=== PATIENT | male | born 1995 | race Caucasian/White ===

== ENCOUNTER 2018-09-19 13:40 | Emergency (ER) | payer SELFPAY ==
[2018-09-19 13:40] VITALS: BP 148/92; PULSE 105; RESP 18; TEMP 36.8; O2SAT 99; BMI 47.5
[2018-09-19 14:20] LABS: UTC Strep Screen (Rapid) Negative (Negative)
--- NOTE | 2018-09-19 14:37 | HMH.EDUTC ---
[facility] [place] Disposition Clinical Impression: Pharyngitis Qualifiers: Pharyngitis/tonsillitis etiology: unspecified etiology Qualified Code(s): J02.9 - Acute pharyngitis, unspecified Otitis media Qualifiers: Otitis media type: suppurative Chronicity: acute Laterality: bilateral Recurrence: non-recurrent Spontaneous tympanic membrane rupture: without spontaneous rupture Qualified Code(s): H66.003 - Acute suppurative otitis media without spontaneous rupture of ear drum, bilateral Disposition: Home, Self-Care Condition on Discharge: Good Instructions: Sore Throat, Middle Ear Infection, DI for Pharyngitis/Tonsillopharyngitis -- Adult Additional Instructions: Drink plenty of fluids. Take tylenol or ibuprofen for pain or fever Take all the antibiotics as prescribed. Throw your tooth brush away and get a new one. Follow up with your regular doctor or return if you're not getting some better in 48 hours. GO TO THE ER FOR ANY WORSENING OR LIFE THREATENING SYMPTOMS Prescriptions: Ibuprofen [Ibuprofen 600mg Tablet] 600 mg PO Q6HP PRN #30 tab PRN Reason: Mild Pain predniSONE [Deltasone 10mg tablet] 10 mg PO BID 3 Days #6 tab Cefdinir [Omnicef 300mg Capsule] 300 mg PO BID #20 cap Referrals: Yuly Tubbs MD [Primary Care Provider] - Forms: Work/School Release Time of Disposition: 14:43 Medical Decision Making - Medical Records Medical records reviewed: Yes: I reviewed the patient's medical records. - Akshat Inquiry Pt receiving controlled substance: No Akshat was queried for this patient: No Vital Signs: 09/19/18 13:40 09/19/18 14:47 Temperature 98.2 F 98.2 F Temperature Source Oral Oral Pulse Rate 105 H Pulse Rate [Left Radial] 105 H Respiratory Rate 18 18 Blood Pressure 148/92 H Blood Pressure [Right Arm] 148/92 H Blood Pressure Mean [Right Arm] 110 Blood Pressure Source Automatic Cuff Blood Pressure Source [Right Arm] Automatic Cuff Blood Pressure Position Sitting Blood Pressure Position [Right Arm] Sitting 02 Sat by Pulse Oximetry 99 Oxygen Delivery Method Room Air Room Air - Lab Data Lab results reviewed: Yes: I reviewed the patient's lab results. Lab Results 09/19/18 14:20: Strep Scn Rapid Clinic Negative Orders (Tests/Meds): ORDERS Category Date Time Status Strep Screen Confirmation Stat Micro 09/19/18 14:20 Received [facility] [place] HPI - General Stated complaint: Headache and high fever Time Seen by Provider: 09/19/18 14:20 Mode of Arrival: Ambulatory Source of Information: Patient Limitations: No Limitations Description of Symptoms (Recalled from Triage Doc. by RN): fever, headache, sore throat since last night HEENT Symptoms (Recalled from RN notes): Yes Resp Symptoms (Recalled from RN notes): No Skin Symptoms (Recalled from RN notes): No MS Symptoms (Recalled from RN notes): No Functional Status (Recalled from RN notes): wnl - Related Data Previous Rx's Medication Instructions Recorded Cefdinir [Omnicef 300mg Capsule] 300 mg PO BID #20 cap 09/19/18 Ibuprofen [Ibuprofen 600mg 600 mg PO Q6HP PRN #30 tab 09/19/18 Tablet] predniSONE [Deltasone 10mg tablet] 10 mg PO BID 3 Days #6 tab 09/19/18 Allergies Allergy/AdvReac Type Severity Reaction Status Date / Time amoxicillin [From AUGMENTIN] Allergy Mild Unverified 03/27/17 15:08 clavulanic acid Allergy Mild Unverified 03/27/17 15:08 [From AUGMENTIN] - Worker's Comp Is this a Worker's Comp case?: No [facility] History - Hepatitis A Screen Drug use history?: No High risk sexual behaviors?: No History of sexually transmitted infection?: No Currently employed?: No Childcare worker?: No Do you have indoor plumbing?: Yes Do you have electricity?: Yes Attestation statement:: This patient has been screened for Hepatitis A risk factors. I have reviewed the patient's past medical history: Yes - Social History Educational Level: Completed High School Smoking Status: Current every d
--- NOTE | 2018-09-19 14:41 | ED_ITS ---
[facility] [place] Disposition Clinical Impression: Pharyngitis Qualifiers: Pharyngitis/tonsillitis etiology: unspecified etiology Qualified Code(s): J02.9 - Acute pharyngitis, unspecified Otitis media Qualifiers: Otitis media type: suppurative Chronicity: acute Laterality: bilateral Recurrence: non-recurrent Spontaneous tympanic membrane rupture: without spontaneous rupture Qualified Code(s): H66.003 - Acute suppurative otitis media without spontaneous rupture of ear drum, bilateral Disposition: Home, Self-Care Condition on Discharge: Good Instructions: Sore Throat, Middle Ear Infection, DI for Pharyngitis/Tonsillopharyngitis -- Adult Additional Instructions: Drink plenty of fluids. Take tylenol or ibuprofen for pain or fever Take all the antibiotics as prescribed. Throw your tooth brush away and get a new one. Follow up with your regular doctor or return if you're not getting some better in 48 hours. GO TO THE ER FOR ANY WORSENING OR LIFE THREATENING SYMPTOMS Prescriptions: Ibuprofen [Ibuprofen 600mg Tablet] 600 mg PO Q6HP PRN #30 tab PRN Reason: Mild Pain predniSONE [Deltasone 10mg tablet] 10 mg PO BID 3 Days #6 tab Cefdinir [Omnicef 300mg Capsule] 300 mg PO BID #20 cap Referrals: Yuly Tubbs MD [Primary Care Provider] - Forms: Work/School Release Time of Disposition: 14:43 Medical Decision Making - Medical Records Medical records reviewed: Yes: I reviewed the patient's medical records. - Akshat Inquiry Pt receiving controlled substance: No Akshat was queried for this patient: No Vital Signs: 09/19/18 13:40 09/19/18 14:47 Temperature 98.2 F 98.2 F Temperature Source Oral Oral Pulse Rate 105 H Pulse Rate [Left Radial] 105 H Respiratory Rate 18 18 Blood Pressure 148/92 H Blood Pressure [Right Arm] 148/92 H Blood Pressure Mean [Right Arm] 110 Blood Pressure Source Automatic Cuff Blood Pressure Source [Right Arm] Automatic Cuff Blood Pressure Position Sitting Blood Pressure Position [Right Arm] Sitting 02 Sat by Pulse Oximetry 99 Oxygen Delivery Method Room Air Room Air - Lab Data Lab results reviewed: Yes: I reviewed the patient's lab results. Lab Results 09/19/18 14:20: Strep Scn Rapid Clinic Negative Orders (Tests/Meds): ORDERS Category Date Time Status Strep Screen Confirmation Stat Micro 09/19/18 14:20 Received [facility] [place] HPI - General Stated complaint: Headache and high fever Time Seen by Provider: 09/19/18 14:20 Mode of Arrival: Ambulatory Source of Information: Patient Limitations: No Limitations Description of Symptoms (Recalled from Triage Doc. by RN): fever, headache, sore throat since last night HEENT Symptoms (Recalled from RN notes): Yes Resp Symptoms (Recalled from RN notes): No Skin Symptoms (Recalled from RN notes): No MS Symptoms (Recalled from RN notes): No Functional Status (Recalled from RN notes): wnl - Related Data Previous Rx's Medication Instructions Recorded Cefdinir [Omnicef 300mg Capsule] 300 mg PO BID #20 cap 09/19/18 Ibuprofen [Ibuprofen 600mg 600 mg PO Q6HP PRN #30 tab 09/19/18 Tablet] predniSONE [Deltasone 10mg tablet] 10 mg PO BID 3 Days #6 tab 09/19/18
[2018-09-19 14:47] VITALS: BP 148/92; PULSE 105; RESP 18; TEMP 36.8; O2SAT 99
== END 2018-09-19 14:48 | disposition home or self-care (01) ==
PROVIDERS: Emergency Provider Nurse Practitioner Family; PCP Family Medicine
DX: J02.9 Acute pharyngitis, unspecified (principal); H66.003 Acute suppurative otitis media without spontaneous rupture of ear drum, bilateral; Z88.1 Allergy status to other antibiotic agents
CPT/HCPCS: 87880; 99201

== ENCOUNTER 2020-03-16 09:00 | Emergency (ER) | payer MEDICAID, SELFPAY ==
[2020-03-16 09:18] VITALS: BP 162/96; PULSE 82; RESP 20; TEMP 36.6; O2SAT 100; BMI 473.6
--- NOTE | 2020-03-16 09:23 | HMH.EDUTC ---
[facility] – [place] Disposition Clinical Impression: Exposure to COVID-19 virus Disposition: Home, Self-Care Condition on Discharge: Good Instructions: Preventing the Spread of Coronavirus Discharge Instructions Additional Instructions: *Monitor Temp, Over the counter Motrin or Tylenol as directed/as needed Tylenol every 4 hours and Motrin every 6 hours (as long as your family doctor has told you that you can take it) for fever or pain. and straight to ER if unable to lower temp less than 101.0 after medication given *Warm salt water gargles may help to soothe the throat *Throat Lozenges *Warm fluids like tea with honey may help to soothe the throat *Sleep elevated *Humidifier/Vaporizer Follow up IMMEDIATELY for new or worsening symptoms or no Noticeable improvement over the next 48-72 hours. 911 for difficulty breathing or swallowing You were tested for today for COVID19 your test result should be back in the next 24-48 hours, you may call to the [facility] to see if your test results are back in the next 48 hours [phone] [facility] hours are 9am-9pm You was given a handout with instructions for Self Quarantine and Self isolation for while you wait on test results and what to do if they are positive If you are positive the Health Dept will be contacting you also Referrals: PCP,No [Primary Care Provider] - Forms: Work/School Release Time of Disposition: 09:29 Medical Decision Making - Akshat Inquiry Pt receiving controlled substance: No Akshat was queried for this patient: No Vital Signs: 03/16/20 09:18 Temperature 97.8 F Temperature Source Oral Pulse Rate [Radial] 82 Respiratory Rate 20 Blood Pressure [Right Arm] 162/96 H Blood Pressure Mean [Right Arm] 118 Blood Pressure Source [Right Arm] Automatic Cuff Blood Pressure Position [Right Arm] Sitting 02 Sat by Pulse Oximetry 100 Oxygen Delivery Method Room Air Orders (Tests/Meds): ORDERS Category Date Time Status Covid-19 Nasal PCR Sendout [facility] 03/16/20 09:16 Ordered [facility] – [place] HPI - General Stated complaint: covid exposure Time Seen by Provider: 03/16/20 09:24 Mode of Arrival: Ambulatory Source of Information: Patient Limitations: No Limitations Description of Symptoms (Recalled from Triage Doc. by RN): covid exposure 2 days ago no symptoms HEENT Symptoms (Recalled from RN notes): No Resp Symptoms (Recalled from RN notes): No Skin Symptoms (Recalled from RN notes): No MS Symptoms (Recalled from RN notes): No Functional Status (Recalled from RN notes): wnl - History of Present Illness Provider Complaint: Patient states that he was around his girlfriend over the weekend and she just foung out that she was positive for COVID States that he is not having any symptoms but wanted to get checked - Related Data Previous Rx's Medication Instructions Recorded Azithromycin [Z-Ru 250mg Tab*] 250 mg PO UD DOSE PK #6 tab 05/07/19 Fluticasone Propionate [Flonase 1 spr NS DAILY #1 bottle 05/07/19 50mcg nasal spray 16gm] Allergies Allergy/AdvReac Type Severity Reaction Status Date / Time amoxicillin [From AUGMENTIN] Allergy Mild Unverified 03/27/17 15:08 clavulanic acid Allergy Mild Unverified 03/27/17 15:08 [From AUGMENTIN] - Worker's Comp Is this a Worker's Comp case?: No [facility] History - Hepatitis A Screen Drug use history?: No High risk sexual behaviors?: No History of sexually transmitted infection?: No Currently employed?: No Childcare worker?: No Do you have indoor plumbing?: Yes Do you have electricity?: Yes Attestation statement:: This patient has been screened for Hepatitis A risk factors. I have reviewed the patient's past medical history: Yes - Social History Smoking Status: Current every day smoker Tobacco Type: cigarettes # Packs/Day (cigarettes): 1 Alcohol Intake: never Occupational Status: employed Housing: house ROS Obtained: Yes All systems reviewed & no additional complaints, Yes Systems reviewed as appropri
[2020-03-16 09:40] VITALS: BP 162/96; PULSE 82; RESP 20; TEMP 36.6; O2SAT 100
[2020-03-17 14:01] LABS: Covid-19 Nasal PCR Sendout Lex Not Detected
== END 2020-03-16 09:41 | disposition home or self-care (01) ==
PROVIDERS: Emergency Provider Nurse Practitioner
DX: Z20.828 Contact with and (suspected) exposure to other viral communicable diseases (principal); F17.210 Nicotine dependence, cigarettes, uncomplicated
CPT/HCPCS: 99201; U0004

== ENCOUNTER 2020-06-15 10:22 | Emergency (ER) | payer OTHER, SELFPAY ==
[2020-06-15 10:25] VITALS: BP 189/101; PULSE 88; RESP 14; TEMP 36.3; O2SAT 99; BMI 47.5
--- NOTE | 2020-06-15 10:56 | HMH.EDUTC ---
[facility] [place] Disposition Clinical Impression: Exposure to COVID-19 virus Sinusitis Qualifiers: Sinusitis location: unspecified location Chronicity: acute Recurrence: non-recurrent Qualified Code(s): J01.90 - Acute sinusitis, unspecified Disposition: Home, Self-Care Condition on Discharge: Good Instructions: DI for Sinusitis, Preventing the Spread of Coronavirus Discharge Instructions Additional Instructions: Drink plenty of fluids. Take tylenol for pain or fever. Take the medications as directed. Follow up with your regular doctor. GO TO THE ER FOR ANY WORSENING SYMPTOMS Prescriptions: Ondansetron [Zofran 4mg ODT] 4 mg PO Q8HP PRN #12 tab.rapdis PRN Reason: Nausea Transmission Status: Received by [facility] Azithromycin [Z-Ru 250mg Tab*] 250 mg PO UD DOSE PK #6 tab Transmission Status: Received by [facility] Referrals: PCP,No [Primary Care Provider] - Forms: Work/School Release Time of Disposition: 11:02 Medical Decision Making - Medical Records Medical records reviewed: No: I reviewed the patient's medical records. - Akshat Inquiry Pt receiving controlled substance: No Vital Signs: 06/15/20 10:25 06/15/20 11:06 Temperature 97.4 F L 97.4 F L Temperature Source Oral Pulse Rate 88 Pulse Rate [Right Brachial] 88 Respiratory Rate 14 14 Blood Pressure 189/101 H Blood Pressure [Right Arm] 189/101 H Blood Pressure Mean [Right Arm] 130 Blood Pressure Source [Right Arm] Automatic Cuff Blood Pressure Position [Right Arm] Sitting 02 Sat by Pulse Oximetry 99 Oxygen Delivery Method Room Air [facility] [place] HPI - General Stated complaint: wants covid test, stomach pain,nausea Time Seen by Provider: 06/15/20 10:56 Mode of Arrival: Ambulatory Source of Information: Patient Limitations: No Limitations Description of Symptoms (Recalled from Triage Doc. by RN): PATEINT C/O NAUSEA, NASAL CONGESTION THAT STARTED YESTERDAY HEENT Symptoms (Recalled from RN notes): Yes Resp Symptoms (Recalled from RN notes): No Skin Symptoms (Recalled from RN notes): No MS Symptoms (Recalled from RN notes): No Functional Status (Recalled from RN notes): WNL - History of Present Illness Provider Complaint: He c/o 2 days of sinus congestion. He works in [employer], so he wants to be checked for covid. He denies any fever or chills and body aches. - Related Data Previous Rx's Medication Instructions Recorded Azithromycin [Z-Ru 250mg Tab*] 250 mg PO UD DOSE PK #6 tab 05/07/19 Fluticasone Propionate [Flonase 1 spr NS DAILY #1 bottle 05/07/19 50mcg nasal spray 16gm] Azithromycin [Z-Ru 250mg Tab*] 250 mg PO UD DOSE PK #6 tab 06/15/20 Ondansetron [Zofran 4mg ODT] 4 mg PO Q8HP PRN #12 tab.rapdis 06/15/20 Allergies Allergy/AdvReac Type Severity Reaction Status Date / Time amoxicillin [From AUGMENTIN] Allergy Mild Verified 06/15/20 10:45 clavulanic acid Allergy Mild Verified 06/15/20 10:45 [From AUGMENTIN] - Worker's Comp Is this a Worker's Comp case?: No [facility] History - Hepatitis A Screen Drug use history?: No High risk sexual behaviors?: No History of sexually transmitted infection?: No Currently employed?: No Childcare worker?: No Do you have indoor plumbing?: Yes Do you have electricity?: Yes Attestation statement:: This patient has been screened for Hepatitis A risk factors. I have reviewed the patient's past medical history: Yes - Social History Smoking Status: Current every day smoker Tobacco Type: cigarettes # Packs/Day (cigarettes): 1 Alcohol Intake: never Occupational Status: other Housing: house ROS Obtained: Yes All systems reviewed & no additional complaints - Constitutional Constitutional: Denies chills, Denies fever(s) Physical Exam - General General appearance: alert, in no apparent distress - Head Head exam: atraumatic, normocephalic, normal inspection - Eye Eye exam: Present: normal appearance, PERRL, EOMI - ENT ENT exa
[2020-06-15 11:06] VITALS: BP 189/101; PULSE 88; RESP 14; TEMP 36.3; O2SAT 99
== END 2020-06-15 11:08 | disposition home or self-care (01) ==
PROVIDERS: Emergency Provider Nurse Practitioner Family
DX: Z20.822 Contact with and (suspected) exposure to COVID-19 (principal); J01.90 Acute sinusitis, unspecified; Z88.1 Allergy status to other antibiotic agents; F17.210 Nicotine dependence, cigarettes, uncomplicated
CPT/HCPCS: 99202; G0463; U0003

== ENCOUNTER 2020-07-21 12:11 | Emergency (ER) | payer OTHER, SELFPAY ==
[2020-07-21 12:20] VITALS: BP 161/96; PULSE 86; RESP 20; TEMP 36.9; O2SAT 100; BMI 47.5
--- NOTE | 2020-07-21 12:30 | HMH.EDUTC ---
[facility] [place] Clinical Impression: Exposure to COVID-19 virus Sinusitis Qualifiers: Sinusitis location: unspecified location Chronicity: acute Recurrence: non-recurrent Qualified Code(s): J01.90 - Acute sinusitis, unspecified Disposition: Home, Self-Care Condition on Discharge: Good Instructions: DI for Sinusitis Additional Instructions: Drink plenty of fluids. Take tylenol for pain or fever. Return if you begin to have difficulty breathing. Follow up with your regular doctor. GO TO THE ER FOR ANY WORSENING SYMPTOMS Prescriptions: Brompheniramine/Pseudoephed/Dm [Bromfed Dm Cough Syrup] 5 ml PO Q6HP PRN #240 syrup PRN Reason: Cough Transmission Status: Received by [facility] Cefdinir [Omnicef 300mg Capsule] 300 mg PO BID #20 cap Transmission Status: Received by [facility] Referrals: PCP,No [Primary Care Provider] - Forms: Work/School Release Time of Disposition: 13:10 Medical Decision Making - Medical Records Medical records reviewed: No: I reviewed the patient's medical records. - Akshat Inquiry Pt receiving controlled substance: No Vital Signs: 07/21/20 12:20 07/21/20 12:57 Temperature 98.4 F 98.4 F Temperature Source Oral Pulse Rate 86 Pulse Rate [Left Brachial] 86 Respiratory Rate 20 20 Blood Pressure 161/96 H Blood Pressure [Left Arm] 161/96 H Blood Pressure Mean [Left Arm] 117 Blood Pressure Source [Left Arm] Automatic Cuff Blood Pressure Position [Left Arm] Sitting 02 Sat by Pulse Oximetry 100 Oxygen Delivery Method Room Air - Lab Data Lab Results 07/21/20 12:41: Strep Scn Rapid Clinic Negative Orders (Tests/Meds): ORDERS Category Date Time Status Strep Screen Confirmation Stat Micro 07/21/20 12:41 Re[place] [facility] [place] - General Stated complaint: covid test Time Seen by Provider: 07/21/20 12:30 - History of Present Illness Provider Complaint: He states that for the past 2 days he has had a sore throat, sinus congestion, a cough and he has felt bad. - Related Data Previous Rx's Medication Instructions Recorded Brompheniramine/Pseudoephed/Dm 5 ml PO Q6HP PRN #240 syrup 07/21/20 [Bromfed Dm Cough Syrup] Cefdinir [Omnicef 300mg Capsule] 300 mg PO BID #20 cap 07/21/20 Allergies Allergy/AdvReac Type Severity Reaction Status Date / Time amoxicillin [From AUGMENTIN] Allergy Mild Verified 06/15/20 10:45 clavulanic acid Allergy Mild Verified 06/15/20 10:45 [From AUGMENTIN] [facility] History - Hepatitis A Screen Attestation statement:: This patient has been screened for Hepatitis A risk factors. I have reviewed the patient's past medical history: Yes - Social History Smoking Status: Current every day smoker Tobacco Type: cigarettes # Packs/Day (cigarettes): 1 Alcohol Intake: never Occupational Status: other Housing: house ROS Obtained: Yes All systems reviewed & no additional complaints - Constitutional Constitutional: Reports system reviewed and no additional complaints, except as docu - Eyes Eyes: Reports system reviewed and no additional complaints, except as docu - ENT Ears, Nose, Mouth, and Throat: Reports system reviewed and no additional complaints, except as docu - Cardiovascular Cardiovascular: Reports system reviewed and no additional complaints, except as docu - Respiratory Respiratory: Reports system reviewed and no additional complaints, except as docu Physical Exam - General General appearance: alert, in no apparent distress - Head Head exam: atraumatic, normocephalic, normal inspection - Eye Eye exam: Present: normal appearance, PERRL, EOMI - ENT ENT exam: Present: normal exam, normal oropharynx, mucous membranes moist, TM's normal bilaterally, normal external ear exam - Neck Neck exam: Present: normal inspection, full ROM, trachea midline. Absent: meningismus, lymphadenopathy - Chest Chest inspection: Present: normal inspection, symmetric chest wa
[2020-07-21 12:43] LABS: UTC Strep Screen (Rapid) Negative (Negative)
[2020-07-21 12:57] VITALS: BP 161/96; PULSE 86; RESP 20; TEMP 36.9; O2SAT 100
== END 2020-07-21 13:10 | disposition home or self-care (01) ==
PROVIDERS: Emergency Provider Nurse Practitioner Family
DX: Z20.822 Contact with and (suspected) exposure to COVID-19 (principal); J01.90 Acute sinusitis, unspecified; F17.210 Nicotine dependence, cigarettes, uncomplicated
CPT/HCPCS: 87880; 99202; G0463; U0003

== ENCOUNTER 2020-11-23 13:30 | Emergency (ER) | payer SELFPAY ==
[2020-11-23 14:00] VITALS: BP 162/84; PULSE 91; RESP 22; TEMP 37.8; O2SAT 98; BMI 43.7
[2020-11-23 14:30] LABS: UTC Strep Screen (Rapid) Positive (Negative)
--- NOTE | 2020-11-23 14:31 | HMH.EDUTC ---
[facility] [place] Disposition Clinical Impression: Strep throat Disposition: Home, Self-Care Condition on Discharge: Good Instructions: Strep Throat, DI for Strep Throat, Cefdinir Additional Instructions: *Monitor Temp, Over the counter Motrin or Tylenol as directed/as needed Tylenol every 4 hours and Motrin every 6 hours (as long as your family doctor has told you that you can take it) for fever or pain. and straight to ER if unable to lower temp less than 101.0 after medication given *Warm salt water gargles may help to soothe the throat *Throat Lozenges *Warm fluids like tea with honey may help to soothe the throat *Sleep elevated *Humidifier/Vaporizer *If you did not take Penicillin shot or was unable to, start taking antibiotic immediately and make sure that you take it for the FULL length of time although you should start to feel better in 24-48 hours *change toothbrush and toothpaste 24-48 hours after starting to take antibiotics so you do not reinfect yourself Monitor Temp. Tylenol and/or Ibuprofen as needed. ER if fever is no less than 101 despite alternating Tylenol and Ibuprofen * Encourage fluids, water, Gatorade, powerade, pedialyte if infant/toddler/or child *Cold fluids, popsicles and ice cream may feel good on his throat Follow up IMMEDIATELY for new or worsening symptoms or no Noticeable improvement over the next 48-72 hours. 911 for difficulty breathing or swallowing Prescriptions: Cefdinir [Omnicef 300mg Capsule] 300 mg PO BID #20 cap Transmission Status: Pending to [facility] Benzonatate [Tessalon Perle 100mg Cap*] 100 mg PO TID PRN #30 cap PRN Reason: Cough Transmission Status: Pending to [facility] Referrals: Provider,Referral, [Primary Care Provider] - As needed Forms: Work/School Release Time of Disposition: 14:36 Medical Decision Making - Akshat Inquiry Pt receiving controlled substance: No Akshat was queried for this patient: No Vital Signs: 11/23/20 14:00 11/23/20 14:34 Temperature 100.0 F H 100.0 F H Temperature Source Oral Pulse Rate 91 H Pulse Rate [Right Brachial] 91 H Respiratory Rate 22 22 Blood Pressure 162/84 H Blood Pressure [Right Arm] 162/84 H Blood Pressure Mean [Right Arm] 110 Blood Pressure Source [Right Arm] Automatic Cuff Blood Pressure Position [Right Arm] Sitting 02 Sat by Pulse Oximetry 98 Oxygen Delivery Method Room Air - Lab Data Lab results reviewed: Yes: I reviewed the patient's lab results. Lab Results 11/23/20 14:29: Strep [facility] Positive A Medical Decision Narrative: Patient states that he is allergic to Augmentin but has taken Cefdnir in the past without reaction or complication [facility] [place] HPI - General Stated complaint: weakness,cough,SOA,COELLO Time Seen by Provider: 11/23/20 14:32 Mode of Arrival: Ambulatory Source of Information: Patient Limitations: No Limitations Description of Symptoms (Recalled from Triage Doc. by RN): PATIENT C/O SORE THROAT, CHEST CONGESTION, COUGH, HEADACHE, AND BODY ACHES THAT STARTED THIS MORNING HEENT Symptoms (Recalled from RN notes): Yes Resp Symptoms (Recalled from RN notes): No Skin Symptoms (Recalled from RN notes): No MS Symptoms (Recalled from RN notes): No Functional Status (Recalled from RN notes): WNL - History of Present Illness Provider Complaint: Patient states that he woke up this morning and was feeling ill, states that he had headache, sore throat, body aches and fever States that he gets tested weekly at [facility] for COVID and last one a couple days ago was negative State this evening he was still feeling achy all over so he came in to get checked - Related Data Previous Rx's Medication Instructions Recorded Benzonatate [Tessalon Perle 100mg 100 mg PO TID PRN #30 cap 11/23/20 Cap*] Cefdinir [Omnicef 300mg Capsule] 300 mg PO BID #20 cap 11/23/20 Allergies Allergy/AdvReac Type Severity Reaction Status Date / Time amoxicillin [From AUGMENTIN] [facility]
[2020-11-23 14:34] VITALS: BP 162/84; PULSE 91; RESP 22; TEMP 37.8; O2SAT 98
== END 2020-11-23 14:44 | disposition home or self-care (01) ==
PROVIDERS: Emergency Provider Nurse Practitioner
DX: J02.0 Streptococcal pharyngitis (principal)
CPT/HCPCS: 87880; 99202; G0463

== ENCOUNTER 2020-12-21 15:31 | Emergency (ER) | payer SELFPAY ==
[2020-12-21 16:40] VITALS: BP 159/112; PULSE 80; RESP 18; TEMP 36.7; O2SAT 98; BMI 43.7
--- NOTE | 2020-12-21 17:19 | HMH.EDUTC ---
[facility] [place] Clinical Impression: Elevated blood pressure reading Disposition: Home, Self-Care Condition on Discharge: Good Instructions: Essential Hypertension, Lisinopril Additional Instructions: Drink plenty of fluids. Low sodium diet, decrease your caffiene intake. Take the medications as directed. Follow up with your regular doctor. We will give you a list of primary care physicians that are taking new patients. Please get an appointment and follow up with one of them for further evaluation and treatment of your elevated blood pressure. GO TO THE ER FOR ANY WORSENING SYMPTOMS Prescriptions: lisinopriL [Lisinopril] 10 mg PO DAILY 30 Days #30 tab Transmission Status: Received by [facility] Referrals: Provider,Referral, [Primary Care Provider] - Time of Disposition: 17:22 Medical Decision Making - Medical Records Medical records reviewed: No: I reviewed the patient's medical records. - Akshat Inquiry Pt receiving controlled substance: No Vital Signs: 12/21/20 16:40 12/21/20 17:24 Temperature 98.0 F 98.0 F Temperature Source Temporal Artery Scan Pulse Rate 80 Pulse Rate [Right Brachial] 80 Respiratory Rate 18 18 Blood Pressure 159/112 H Blood Pressure [Right Arm] 159/112 H Blood Pressure Mean [Right Arm] 127 Blood Pressure Source [Right Arm] Automatic Cuff Blood Pressure Position [Right Arm] Sitting 02 Sat by Pulse Oximetry 98 Oxygen Delivery Method Room Air [facility] [place] - General Stated complaint: WANTS CLEARANCE TO RETURN TO WORK Time Seen by Provider: 12/21/20 16:50 Mode of Arrival: Ambulatory Source of Information: Patient Limitations: No Limitations Description of Symptoms (Recalled from Triage Doc. by RN): PATIENT STATES HE NEEDS A PROVIDER TO SIGN OFF ON A BLOOD PRESSURE CHECK FOR WORK HEENT Symptoms (Recalled from RN notes): No Resp Symptoms (Recalled from RN notes): No Skin Symptoms (Recalled from RN notes): No MS Symptoms (Recalled from RN notes): No Functional Status (Recalled from RN notes): WNL - History of Present Illness Provider Complaint: He went to a job interview and had to take a fitness test. During that test his blood pressure went up. The test was stopped. He has a history of hypertension despite being so young. He used to be on lisinopril but he quit seeing his doctor and ran out of refills. He wants to be restarted on the lisinopril to get his blood pressure back under control so he can go retake that fitness test to get that job. - Related Data Previous Rx's Medication Instructions Recorded Benzonatate [Tessalon Perle 100mg 100 mg PO TID PRN #30 cap 11/23/20 Cap*] Cefdinir [Omnicef 300mg Capsule] 300 mg PO BID #20 cap 11/23/20 lisinopriL [Lisinopril] 10 mg PO DAILY 30 Days #30 tab 12/21/20 Allergies Allergy/AdvReac Type Severity Reaction Status Date / Time amoxicillin [From AUGMENTIN] Allergy Mild Verified 06/15/20 10:45 clavulanic acid Allergy Mild Verified 06/15/20 10:45 [From AUGMENTIN] - Worker's Comp Is this a Worker's Comp case?: No [facility] History - Hepatitis A Screen Drug use history?: No High risk sexual behaviors?: No History of sexually transmitted infection?: No Currently employed?: No Childcare worker?: No Do you have indoor plumbing?: Yes Do you have electricity?: Yes Attestation statement:: This patient has been screened for Hepatitis A risk factors. I have reviewed the patient's past medical history: Yes - Social History Smoking Status: Current every day smoker Tobacco Type: cigarettes # Packs/Day (cigarettes): 1 Alcohol Intake: never Occupational Status: other Housing: house ROS Obtained: Yes All systems reviewed & no additional complaints - Constitutional Constitutional: Denies chills, Denies fever(s) - Eyes Eyes: Denies blind spots, Denies blurry vision, Denies change in vision, Denies diplopia, Denies eye discharge - ENT Ears, Nose, Mouth, and Throat: Denies dizzines
[2020-12-21 17:24] VITALS: BP 159/112; PULSE 80; RESP 18; TEMP 36.7; O2SAT 98
== END 2020-12-21 17:29 | disposition home or self-care (01) ==
PROVIDERS: Emergency Provider Nurse Practitioner Family
DX: I16.9 Hypertensive crisis, unspecified (principal); F17.210 Nicotine dependence, cigarettes, uncomplicated
CPT/HCPCS: 99202; G0463

== ENCOUNTER 2022-01-27 18:46 | Emergency (ER) | payer SELFPAY ==
--- NOTE | 2022-01-27 18:50 | EXP.UTC ---
Discharge Plan Disposition Patient Disposition: Home, Self-Care Condition: Good Prescriptions Prescriptions: New ondansetron 8 mg tablet,disintegrating 8 mg PO TID PRN (Reason: Nausea) Qty: 30 0RF No Action benzonatate 100 MG capsule 100 mg PO TID PRN (Reason: Cough) Qty: 30 0RF cefdinir 300 MG capsule 300 mg PO BID Qty: 20 0RF lisinopril 10 MG tablet 10 mg PO DAILY 30 Days Qty: 30 0RF Referrals Follow up/Referrals: Provider,Referral, MD [Primary Care Provider] - See instructions Activity Restrictions/Add. Instructions Additional Instructions/Restrictions: [place] diet, clear liquids only Clinical Impressions Clinical Impression: Gastroenteritis Stand Alone Forms Stand Alone Forms: Work/School Release Instructions Patient Instructions: DI for Viral Gastroenteritis -- Adult Discharge ED Provider: Virgie Eason [facility] General Stated complaint: stomach ache Time Seen by Provider: 01/27/22 19:24 History of Present Illness Provider Complaint: Patient has had upset stomach for a few days. No fever. Had nausea, no appetite. Had trouble having a bowel movement, now has diarrhea. Onset (ago): day(s) (3) Location: abdomen Relieving factors: none Exacerbating factors: none Associated symptoms: denies other symptoms Treatments prior to arrival: none Related Data Previous Rx's Medication Instructions Recorded benzonatate 100 mg capsule 100 mg PO TID PRN Cough #30 caps 11/23/20 cefdinir 300 mg capsule 300 mg PO BID #20 caps 11/23/20 lisinopril 10 mg tablet 10 mg PO DAILY 30 days #30 tabs 12/21/20 ondansetron 8 mg disintegrating 8 mg PO TID PRN Nausea #30 tabs 01/27/22 tablet Allergies Allergy/AdvReac Type Severity Reaction Status Date / Time amoxicillin [From AUGMENTIN] Allergy Mild Verified 06/15/20 10:45 clavulanic acid Allergy Mild Verified 06/15/20 10:45 [From AUGMENTIN] [facility] Social History Smoking Status: Current every day smoker tobacco type: cigarettes packs per day: 1 second hand exposure: Yes alcohol intake: never current occupational status: other Travel in the last 8 weeks: None housing: house ROS Obtained: Yes All systems reviewed & no additional complaints except as documented Gastrointestinal Gastrointestingal: Reports loose stools and nausea Physical Exam General General appearance: alert and in no apparent distress Head Head exam: atraumatic, normocephalic and normal inspection Neck Neck exam: Present normal inspection, full ROM and trachea midline; Absent meningismus or lymphadenopathy Chest Chest inspection: Present normal inspection and symmetric chest wall rise; Absent tenderness Respiratory Respiratory exam: Present normal lung sounds bilaterally; Absent respiratory distress Cardiovascular Cardiovascular exam: Present regular rate and normal rhythm; Absent JVD Abdominal Exam Abdominal exam: Present soft and normal bowel sounds; Absent distention, tenderness or guarding Neurological Exam Neurological exam: Present alert and oriented X3 Psychiatric Psychiatric exam: Present normal affect and normal mood Skin Skin exam: Present warm, dry, intact and normal color Lymphatic Lymphatic Findings: no adenopathy Medical Decision Making Akshat Inquiry Pt receiving controlled substance: No
[2022-01-27 19:19] VITALS: BP 177/98; PULSE 83; RESP 19; TEMP 37.1; O2SAT 96; BMI 47.5
[2022-01-27 19:34] VITALS: BP 177/98; PULSE 83; RESP 19; TEMP 37.1; O2SAT 96
== END 2022-01-27 19:45 | disposition home or self-care (01) ==
PROVIDERS: Emergency Provider Physician Assistant
DX: K52.9 Noninfective gastroenteritis and colitis, unspecified (principal)
CPT/HCPCS: 99212; G0463

== ENCOUNTER 2022-06-13 11:31 | Emergency (ER) | payer SELFPAY ==
--- NOTE | 2022-06-13 11:41 | ECG_ITS ---
APPROVED REPORT Exam: Resting ECG HR:84 bpm ECG Measurements Heart Rate 84 AXES NH 121 P 44 QRSd 100 QRS 41 QT 362 T 1 QTc 403 Conclusion SINUS RHYTHM WITH SINUS ARRHYTHMIA PROBABLE INFERIOR MYOCARDIAL INFARCTION , PROBABLY OLD [35 ms Q WAVE IN II/aVF] ABNORMAL ECG UNCONFIRMED REPORT Electronically signed by : Timothy Hall MD 06/13/2022 19:16:15
[2022-06-13 11:42] VITALS: BP 177/101; PULSE 116; RESP 20; TEMP 36.8; O2SAT 100; BMI 53.2
--- NOTE | 2022-06-13 11:44 | HMH.EDGENADL ---
Discharge Plan Disposition Patient Disposition: Home, Self-Care Condition: Good Prescriptions Prescriptions: New lisinopril 20 mg tablet 20 mg PO DAILY Qty: 30 0RF Referrals Follow up/Referrals: Provider,Referral, MD [Referring] - See instructions Activity Restrictions/Add. Instructions Additional Instructions/Restrictions: Take lisinopril as prescribed for blood pressure. Additional instructions for CHEST PAIN: See your physician as soon as possible for further evaluation. Return immediately if worsening chest pain, vomiting, shortness of breath, fever, coughing of blood. Clinical Impressions Clinical Impression: Atypical chest pain, Hypertension Instructions Patient Instructions: DI for High Blood Pressure, DI for Atypical Chest Pain Discharge ED Provider: Brandyn Mccauley General Adult HPI General Chief complaint: Chest Pain Stated complaint: CP Time Seen by Provider: 06/13/22 12:03 History of Present Illness HPI narrative: The patient is sent from primary care provider's office. He says for the past few days he has had intermittent episodes where he feels a cold tingly sensation in his left anterior chest lasting minutes to hours. Not usually associated with shortness of breath, although see he says he had 1 episode of shortness of breath yesterday after coming down some steps and used somebody else's inhaler for it. Occasionally feels sweaty in the palms. No nausea associated with episodes. No prior history of any heart problems known. He says he was diagnosed with hypertension a year ago and was started on a blood pressure medication but did not take it. He is a smoker. He does not have hyperlipidemia or diabetes. He says his mother of a heart attack at 49. He has never had a cardiac work-up. He had an EKG performed at the primary care provider's office which showed inferior Q waves and is sent to the emergency department. Related Data Previous Rx's Medication Instructions Recorded lisinopril 20 mg tablet 20 mg PO DAILY #30 tabs 06/13/22 Allergies Allergy/AdvReac Type Severity Reaction Status Date / Time amoxicillin [From AUGMENTIN] Allergy Mild Verified 06/13/22 11:10 clavulanic acid Allergy Mild Verified 06/13/22 11:10 [From AUGMENTIN] [facility] Disclaimer: The information contained in this section may have been updated after the patient was seen, as this information can be updated by other users. Medical History (Updated 03/07/23 @ 14:09 by Brandyn Mccauley MD) Annual physical exam Elevated blood pressure reading Exposure to COVID-19 virus Gastroenteritis HTN (hypertension) Otitis media Pharyngitis Sinusitis Strep throat Family History (Updated 06/13/22 @ 11:36 by Nevin Ortiz APRN) Mother Heart attack, Onset Age: 49 Social History Smoking Status: Current every day smoker tobacco type: cigarettes packs per day: 1 second hand exposure: Yes alcohol intake: never current occupational status: other Travel in the last 8 weeks: None housing: house ROS Obtained: Yes Systems reviewed as appropriate & no additional complaints except as documented Constitutional Constitutional: Denies fever(s), Denies headache(s) and Denies weakness ENT Ears, Nose, Mouth, and Throat: Denies headache(s), Denies nasal discharge and Denies sore throat Cardiovascular Cardiovascular: Reports chest pain, Reports dyspnea on exertion and Denies radiating jaw, neck or arm pain Respiratory Respiratory: Denies shortness of breath, Denies cough and Reports dyspnea on exertion Gastrointestinal Gastrointestingal: Denies abdominal pain, constipation, diarrhea or vomiting Genitourinary Male Genitourinary: Denies difficulty urinating and Denies flank pain Musculoskeletal Musculoskeletal: Denies numbness Neurologic Neurologic: Denies headache(s), Denies numbness and Denies weakness Physical Exam General General appearance: alert and in no apparent distress
[2022-06-13 12:00] VITALS: BP 160/88; PULSE 90; O2SAT 100
[2022-06-13 12:00] LABS: Basophils # 0.1 K/mm3 (0-0.2); Basophils % 1.1 % (0.1-2.0); Chloride 102 mmol/L (98-107); Eosinophils # 0.1 K/mm3 (0.0-0.4); Eosinophils % 1.3 % (0.1-12.0); Hematocrit 41.2 % (42.0-52.0); Hemoglobin 14.2 g/dL (14.1-18.0); Lymphocytes # 2.1 K/mm3 (0.7-4.5); Lymphocytes % 31.1 % (10-50); Mean Corpuscular HGB Conc 34.4 g/dL (31.8-35.4); Mean Corpuscular Hemoglobin 32.1 pg (27.0-31.2); Mean Corpuscular Volume 93.4 fl (80-94); Mean Platelet Volume 7.8 fl (7.4-10.4); Monocytes # 0.3 K/mm3 (0.1-1.0); Monocytes % 4.9 % (1.7-9.3); Neutrophils # 4.1 K/mm3 (1.8-7.8); Neutrophils % 61.6 % (37.0-80.0); Platelet Count 238 K/mm3 (142-424); Red Blood Count 4.41 M/mm3 (4.60-6.20); Red Cell Distribution Width 13.4 % (11.5-17.5); Sodium 138 mmol/L (136-145); White Blood Count 6.7 K/mm3 (4.8-10.8)
[2022-06-13 12:01] LABS: Potassium 3.6 mmoL/L (3.5-5.1)
[2022-06-13 12:03] LABS: Blood Urea Nitrogen 9 mg/dl (9-20); Creatinine Clearance Estimated 147 mL/min (50-200); Estimated Glomerular Filt Rate 104 ml/min (>60); GFR (African American) 125 ML/MIN (>60)
[2022-06-13 12:04] LABS: Anion Gap 10.6 mEq/L (5-15); Calcium 8.9 mg/dl (8.4-10.2); Carbon Dioxide 29 mmol/L (22.0-30.0); Glucose 112 mg/dl (74-100)
--- NOTE | 2022-06-13 12:08 | XR_ITS ---
FINAL REPORT CLINICAL HISTORY: chest pain FINDINGS: The heart size is normal. The mediastinum is within normal limits. There is no acute cardiopulmonary process. There is no pleural effusion. There is no pneumothorax. The bony thorax is intact. IMPRESSION: No acute cardiopulmonary process. Reviewed, Interpreted and Dictated by Satnam Vásquez III, MD Transcribed by Karri Storey Authenticated and [facility]
[2022-06-13 12:21] LABS: NT Pro Brain Natriuretic Pep. < 11.1 pg/mL (0-125); Troponin I < 0.01 ng/ml (0.00-0.034)
--- NOTE | 2022-06-13 12:33 | PC.NURSE ---
notified RT of echo order on pt, rickey jones will notify cv lab staff.
[2022-06-13 14:01] LABS: Troponin I < 0.01 ng/ml (0.00-0.034)
--- NOTE | 2022-06-13 14:01 | PC.NURSE ---
notified ER pt second troponin in resulted
--- NOTE | 2022-06-13 14:02 | PC.NURSE ---
DENITA KLEIN at
[2022-06-13 14:15] VITALS: BP 159/108; PULSE 105; RESP 18; TEMP 36.7; O2SAT 98
== END 2022-06-13 14:15 | disposition home or self-care (01) ==
PROVIDERS: Emergency Provider Emergency Medicine; PCP Family Medicine
DX: R07.89 Other chest pain (principal); I10 Essential (primary) hypertension; F17.210 Nicotine dependence, cigarettes, uncomplicated
CPT/HCPCS: 71045; 80048; 83880; 84484; 85025; 93005; 93306; 99285

== ENCOUNTER 2022-07-04 15:03 | Emergency (ER) | payer SELFPAY ==
[2022-07-04 15:15] VITALS: BP 166/97; PULSE 104; RESP 20; TEMP 36.6; O2SAT 96; BMI 47.5
--- NOTE | 2022-07-04 15:27 | EXP.UTC ---
Discharge Plan Disposition Patient Disposition: Home, Self-Care Condition: Good Prescriptions Prescriptions: New dicyclomine 10 mg capsule 10 mg PO TID PRN (Reason: cramping) Qty: 12 0RF ondansetron 4 mg tablet,disintegrating 4 mg PO Q8H PRN (Reason: nausea and vomiting) Qty: 10 0RF No Action lisinopril 20 mg tablet 20 mg PO DAILY Referrals Follow up/Referrals: Provider,Referral, MD [Primary Care Provider] - See instructions Activity Restrictions/Add. Instructions Additional Instructions/Restrictions: Drink extra fluids with and between meals. If you have difficulty drinking, try very small amounts of water or suck on ice chips. ? Avoid fruit juices, as these do not replace minerals and can actually increase diarrhea. ? Children and adults can use sports drinks to replenish electrolytes. Younger children and infants should use products formulated for children, like oral rehydration solutions. ? Eat food in small amounts and let your stomach recover. ? Get lots of rest. You may feel tired or weak. ? No greasy or fried foods for the next 24-48 hours BRAT diet Bananas Rice Apples and [place] ? Make sure to drink plenty of liquids ? Return if needed ? Straight to ER if any life threatening symptoms ? Zofran as prescribed for nausea ? You was given an outpatient order for diarrhea panel, please collect specimen and bring back to outpatient lab then call back to the [facility] or follow up with family doctor for results ? Follow up with family doctor in the next 48-72 hours if no improvement or any worsening of symptoms Clinical Impressions Clinical Impression: Diarrhea Stand Alone Forms Stand Alone Forms: Work/School Release Instructions Patient Instructions: Diarrhea, Dicyclomine, DI for Nasal Congestion Discharge ED Provider: Ignacia Kline [facility] [place] General Stated complaint: stomach pain Mode of Arrival: Ambulatory Source of Information: Patient Limitations: No Limitations Time Seen by Provider: 07/04/22 15:27 Description of Symptoms (Recalled from Triage Doc. by RN): stomach cramping, diarrhea, cold sweats, COELLO, sore throat, sinus pressure. HEENT Symptoms (Recalled from RN notes): Yes Resp Symptoms (Recalled from RN notes): No Skin Symptoms (Recalled from RN notes): No MS Symptoms (Recalled from RN notes): No Functional Status (Recalled from RN notes): n/a History of Present Illness Provider Complaint: Patient states that several people at work has been out with the stomach bug States that he started yesterday with cramping, diarrhea and nausea but no vomiting States that he has been having some nasal congestion and chills States that he was a little sweaty when he woke up this morning not sure if he may have had fever last night but not had fever that he is aware of Related Data Home Medications Medication Instructions Recorded Confirmed lisinopril 20 mg tablet 20 mg PO DAILY High blood pressure 07/04/22 07/04/22 Previous Rx's Medication Instructions Recorded dicyclomine 10 mg capsule 10 mg PO TID PRN cramping #12 caps 07/04/22 ondansetron 4 mg disintegrating 4 mg PO Q8H PRN nausea and 07/04/22 tablet vomiting #10 tabs Allergies Allergy/AdvReac Type Severity Reaction Status Date / Time amoxicillin [From AUGMENTIN] Allergy Mild Verified 07/04/22 15:24 clavulanic acid Allergy Mild Verified 07/04/22 15:24 [From AUGMENTIN] Worker's Comp Is this a Worker's Comp case?: No [facility] Disclaimer: The information contained in this section may have been updated after the patient was seen, as this information can be updated by other users. Medical History (Updated 07/04/22 @ 15:39 by Ignacia Kline, [employer]) Annual physical exam Elevated blood pressure reading Exposure to COVID-19 virus Gastroenteritis HTN (hypertension) Otitis media Pharyngitis Sinusitis Strep throat Family History (Revi
[2022-07-04 15:44] VITALS: BP 166/97; PULSE 104; RESP 20; TEMP 36.6; O2SAT 96
== END 2022-07-04 15:49 | disposition home or self-care (01) ==
PROVIDERS: Emergency Provider Nurse Practitioner
DX: R10.9 Unspecified abdominal pain (principal); R51.9 Headache, unspecified; R19.7 Diarrhea, unspecified; R11.0 Nausea; F17.210 Nicotine dependence, cigarettes, uncomplicated; I10 Essential (primary) hypertension
CPT/HCPCS: 99212; 99214; G0463